=== PATIENT | male | born 1980 | race Caucasian/White ===

== ENCOUNTER 2020-12-26 15:26 | Observation (INO) ==
[2020-12-26] MEDS ORDERED: Acetaminophen 325 MG TABLET PO PRN (16:56)
[2020-12-26] MEDS ORDERED: Ondansetron 4 MG/2 ML VIAL IVP PRN (16:56)
[2020-12-26] MEDS ORDERED: Naloxone 0.4 MG/ML INJ IVP PRN (16:56)
[2020-12-26 19:45] LABS: Potassium 3.3 mEq/L (3.5-5.1)
[2020-12-26] MEDS ORDERED: Ipratropium/Albuterol Neb 3 ML IH SCH (20:00)
[2020-12-26] MEDS: carvediloL 6.25 MG TABLET PO SCH (20:18)
[2020-12-26] MEDS ORDERED: levoFLOXacin 750 MG/150 ML 750 MG/150 ML BAG IVPB SCH (21:00)
[2020-12-26] MEDS ORDERED: Dexamethasone Sodium Phos/PF 10 MG/ML VIAL IVP ONE (21:57)
[2020-12-26] MEDS ORDERED: Remdesivir 200 MG in 0.9 % Sodium Chloride 100 ML IVPB ONE (22:00)
[2020-12-26] MEDS: Ipratropium 1 PUFF INHALER IH SCH (22:11)
[2020-12-27] MEDS: Ipratropium 1 PUFF INHALER IH SCH ×3 (00:54→06:30)
[2020-12-27] MEDS: clonazePAM 1 MG TABLET PO PRN ×2 (03:08→03:47)
[2020-12-27 05:33] LABS: Hematocrit 39.6 % (37.5-50.1); Mean Corpuscular HGB Conc 35.4 g/dL (31.6-35.5); Mean Corpuscular Hemoglobin 30.6 pg (28.0-33.3); Mean Corpuscular Volume 86.7 fL (83.0-100.0); Platelet Count 162 K/mcL (140-400); Red Blood Count 4.57 M/mcL (4.19-5.50); Red Cell Distribution Width 12.8 % (11.5-14.5); White Blood Count 3.4 K/mcL (4.3-11.1)
[2020-12-27 05:47] LABS: BUN/Creatinine Ratio 14 (6-26); Blood Urea Nitrogen 10 mg/dL (6-20); Calcium 8.2 mg/dL (8.6-10.3); Carbon Dioxide 29 mEq/L (23-29); Chloride 98 mEq/L (98-107); Glucose 156 mg/dL (70-105); Magnesium 2.5 mg/dL (1.6-2.6); Osmolality,Calculated 284 (280-300); Potassium 3.1 mEq/L (3.5-5.1); Sodium 136 mEq/L (136-145); eGFR For African Americans > 60 (> 60); eGFR For Non-African Americans > 60 (> 60)
[2020-12-27 05:48] LABS: Albumin 3.7 g/dL (3.5-5.7); Albumin/Globulin Ratio 1.2 (1.1-2.2); Bilirubin,Direct 0.4 mg/dL (0.0-0.2); Bilirubin,Indirect 0.5 mg/dL (0.0-1.0); Bilirubin,Total 0.9 mg/dL (0.3-1.0); Total Protein 6.7 g/dL (6.4-8.9)
[2020-12-27] MEDS ORDERED: *HR* Enoxaparin 40 MG/0.4 ML SYRINGE SQ SCH (06:00)
[2020-12-27] MEDS ORDERED: Furosemide 40 MG/4 ML VIAL IVP ONE (07:15)
[2020-12-27] MEDS: carvediloL 6.25 MG TABLET PO SCH (07:31)
[2020-12-27] MEDS ORDERED: Dexamethasone Sodium Phos/PF 10 MG/ML VIAL IVP ONE (07:56)
[2020-12-27 08:04] VITALS: BP 116/79; PULSE 81; RESP 18; TEMP 98.1; O2SAT 89
[2020-12-27 08:29] LABS: Ferritin 727 ng/mL (20-250)
[2020-12-27 08:37] LABS: C-Reactive Protein 72 mg/L (Less than 10)
[2020-12-27] MEDS ORDERED: Dexamethasone Sodium Phos/PF 10 MG/ML VIAL IVP SCH ×3 (09:00)
[2020-12-27] MEDS ORDERED: amLODIPine 5 MG TABLET PO SCH (09:00)
[2020-12-27] MEDS ORDERED: Remdesivir 100 MG in 0.9 % Sodium Chloride 100 ML IVPB SCH (18:00)
== END 2020-12-27 08:10 | disposition short-term general hospital (02) ==
LOC: INPGRE
PROVIDERS: ADMIT Family Medicine; ATTEND Family Medicine